=== PATIENT | female | born 1985 | race Caucasian/White ===

== ENCOUNTER 2021-02-03 17:47 | Emergency (ER) | payer OTHER, SELFPAY ==
[2021-02-03 18:20] VITALS: BP 130/71; PULSE 75; RESP 18; TEMP 36.6; O2SAT 99
--- NOTE | 2021-02-03 19:21 | ED.URI ---
HPI - URI/Sore Throat General Chief Complaint: Upper Respiratory Infection Stated Complaint: congestion,sneezing,sinus pressure,bilateral earac Source: patient and RN notes reviewed Limitations: no limitations History of Present Illness HPI Narrative: The patient ,a non-smoker/nondrinker works as a teacher, presents with 1/2-week history of itchy watery eyes, clear rhinorrhea, sneezing associated ear fullness. No fever, smokers/pet triggers ,sputum change sore throat, cough; no loss of taste/smell, CP, vomiting/diarrhea, S OB; she is breast-feeding over 1-year-old infant. Related Data Home Medications Medication Instructions Recorded Confirmed multivitamin [Daily Multi-Vitamin] 1 tablet PO DAILY 02/03/21 02/03/21 Allergies Allergy/AdvReac Type Severity Reaction Status Date / Time Sulfa (Sulfonamide AdvReac Severe Swelling Verified 02/03/21 18:49 Antibiotics) of Lip/Tongue/Throat Review of Systems Review of Systems: General/Constitutional: No weight loss,fever Eyes: N0: Redness,discharge Ears/Nose/Throat: No: Epistaxis,ear discharge Respiratory: Denies: Hemoptysis Gastrointestinal: No Vomiting, Bleeding-rectal Skin: No Lumps, eruption Neurologic: No Focal Weakness,Sz Hematologic: Denies: Petechiae/Purpura Psychiatric: No: Suicida ideationl All Other Systems: Reviewed and Negative PMFSH Comments At time of signature, agree with nursing past medical, surgical, social and family history. There is no relevant family history pertinent to the presenting complaint Exam Narrative: General Appearance: Well appearing, Well nourished EYE: PERRLA, Conjunctiva clear Ears: Auditory canal normal, TM normal Nose: Rhinorrhea, Mucousal erythema Mouth/Throat: MM moist, Uvula midline, Pharyngeal erythema Neck: Supple, No adenopathy Respiratory: No respiratory distress, Breath sounds equal, Clear to auscultation Cardiovascular: RRR, No JVD Musculoskeletal: Non tender, Normal strength Skin: Warm, Dry Neurological: A&O x3, CN II-XII intact Psychiatric: Normal mood, Normal affect Course Vital Signs Vital signs: Vital Signs Temperature 97.8 F 02/03/21 18:20 Pulse Rate 75 02/03/21 18:20 Respiratory Rate 18 02/03/21 18:20 Blood Pressure 130/71 02/03/21 18:20 Pulse Oximetry 99 02/03/21 18:20 Temperature 97.8 F 02/03/21 18:20 Pulse Rate 75 02/03/21 18:20 Respiratory Rate 18 02/03/21 18:20 Blood Pressure 130/71 02/03/21 18:20 Pulse Oximetry 99 02/03/21 18:20 Discharge Plan Discharge Clinical Impression: Allergic rhinosinusitis Patient Disposition: Home, Self-Care Condition: Stable Instructions: Rhinosinusitis (ED) Additional Instructions: You may also take OTC preparations, antihistamines[Claritin, Renae, etc.], nasal sprays [Flonase, Afrin] etc. Prescriptions: New azelastine 137 mcg (0.1 %) aerosol,spray 137 mcg NASAL Q12H Qty: 30 RF: 1 ipratropium bromide 42 mcg (0.06 %) spray,non-aerosol 2 spray intranasal TID Qty: 15 RF: 1 No Action multivitamin [Daily Multi-Vitamin] Tablet 1 tablet PO DAILY RF: 0 Follow-up/Referrals: UNKNOWN,DOCTOR [Primary Care Provider] -
== END 2021-02-03 19:28 | disposition home or self-care (01) ==
PROVIDERS: Emergency Provider Emergency Medicine
DX: J01.90 Acute sinusitis, unspecified (principal)
CPT/HCPCS: 99203; G0463